=== PATIENT | female | born 1985 | race Caucasian/White ===

== ENCOUNTER 2022-12-30 20:03 | Emergency (ER) | payer OTHER, SELFPAY ==
[2022-12-30 20:06] VITALS: BP 150/90; PULSE 108; RESP 18; TEMP 36.3; O2SAT 95
[2022-12-30] MEDS: ONDANSETRON INJ 4 MG/2 ML VIAL IV PUSH (20:23)
[2022-12-30] MEDS: EPINEPHrine HCL INJ 1 MG/ML AMPUL 0.3 MG IM (20:24)
[2022-12-30 20:27] VITALS: O2SAT 98
--- NOTE | 2022-12-30 20:37 | ED.GENADULT ---
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 She took 50mg of benadryl but she still felt her throat swelling up as well as her lips. She denied dyspnea. She is also getting some cramps and watery diarrhea with it as well. Related Data Allergies Allergy/AdvReac Type Severity Reaction Status Date / Time walnut Allergy Anaphylaxis Verified 12/30/22 20:11 Review of Systems Review of Systems: All systems reviewed & are unremarkable except as noted in HPI and below Exam Const: General: healthy appearing and alert; No confusion Other: mild distress HENMT: Other: Lips were very swollen Eyes: Conjunctivae: conjunctivae normal Pupils: Equal, round and reactive pupils present EOM: EOMs intact bilaterally Neck: Neck: normal visual inspection Chest: Chest palpation & inspection: normal inspection of the chest Resp: Effort & Inspection: normal respiratory effort Auscultation: clear to auscultation bilaterally Cardio: Rate: regular rate Rhythm: regular rhythm GI: Inspection: non-distended GI Palp: Yes Soft to palpation, No Tenderness to palpation present (GI) and No Guarding due to palpation present (GI) Auscultation: normal bowel sounds Skin: General skin exam: normal color Rashes: no rashes Neuro: General: patient oriented x3 and moves all extremities Cranial nerves: Yes Nystagmus not present Extrem: General: normal to inspection Psych: Mental Status: mental status grossly normal Course Course Emergency Course: She was given a dose of sub q epi. About 15minutes after this her lip swelling was completely resolved. She continued to be asymptomatic for the duration of her hospital stay. She was given a hand written script for an epi pen as computers were down. Vital Signs Vital signs: Vital Signs Temperature 97.4 F L 12/30/22 20:06 Pulse Rate 108 H 12/30/22 20:06 Respiratory Rate 18 12/30/22 20:06 Blood Pressure 150/90 H 12/30/22 20:06 Pulse Oximetry 95 12/30/22 20:06 Oxygen Delivery Room Air 12/30/22 20:06 Temperature 97.4 F L 12/30/22 20:06 Pulse Rate 108 H 12/30/22 20:06 Respiratory Rate 18 12/30/22 20:06 Blood Pressure 150/90 H 12/30/22 20:06 Pulse Oximetry 98 12/30/22 20:27 Oxygen Delivery Room Air 12/30/22 20:27 Medical Decision Making Vital Signs Vital Signs: Vital Signs Temperature 97.4 F L 12/30/22 20:06 Pulse Rate 108 H 12/30/22 20:06 Respiratory Rate 18 12/30/22 20:06 Blood Pressure 150/90 H 12/30/22 20:06 Pulse Oximetry 95 12/30/22 20:06 Oxygen Delivery Room Air 12/30/22 20:06 Temperature 97.4 F L 12/30/22 20:06 Pulse Rate 108 H 12/30/22 20:06 Respiratory Rate 18 12/30/22 20:06 Blood Pressure 150/90 H 12/30/22 20:06 Pulse Oximetry 98 12/30/22 20:27 Oxygen Delivery Room Air 12/30/22 20:27 Discharge Plan Discharge Clinical Impression: Allergic reaction Patient Disposition: Other Condition: Improved Instructions: Anaphylaxis (ED) Follow-up/Referrals: UNKNOWN,DOCTOR [Non-Staff] -
--- NOTE | 2022-12-30 22:18 | PC.NURSE ---
Please see paper charting. Pt d/c during downtime. Iv removed. Prescription for EPI pen given via paper prescription.
== END 2022-12-30 22:21 | disposition home or self-care (01) ==
PROVIDERS: Emergency Provider Family Medicine; PCP Physician Assistant
DX: T78.1XXA Other adverse food reactions, not elsewhere classified, initial encounter (principal); R22.0 Localized swelling, mass and lump, head
CPT/HCPCS: 96372; 96374; 99284; J0171; J2405

== ENCOUNTER 2023-05-02 16:29 | Emergency (ER) | payer OTHER, SELFPAY ==
--- NOTE | ~2023-05-02 | US_ITS ---
EXAMINATION: US OB <= 14 weeks fetus DATE: 05/02/2023 18:30 INDICATION: Vaginal bleeding. Early . TECHNIQUE: Real-time transabdominal pelvic ultrasound was performed. COMPARISON: None. FINDINGS: The uterus measures 14.4 x 7.9 x 11.3 cm. There is an intrauterine gestational sac. The crown r ump length measures 6.3 cm, which correlates with an estimated gestational age of 12 weeks and 5 day( s) (+/-) 1 week(s) and 1 day(s). heart motion is identified measuring 148 beats per minute (bpm ) by M-mode Doppler. There is a small subchorionic hematoma measuring 1.1 cm. There is a 2.1 cm intra mural fibroid. The ovaries are not visualized. There is no free fluid in the pelvis. IMPRESSION: 1. Single living intrauterine gestation with estimated date of delivery of 11/09/2023. 2. Small subchorionic hematoma. 3. Uterine fibroid. Reviewed, dictated and finalized at location E. IN STATION OPERATOR IMPRESSION: 1. Single living intrauterine gestation with estimated date of delivery of 10/26. 2. Small subchorionic hematoma. 3. Uterine fibroid.
[2023-05-02 17:05] VITALS: BP 112/63; PULSE 87; RESP 16; O2SAT 99
[2023-05-02 17:39] LABS: Basophils Percent Auto 0.3 % (0.2-1.2); Eosinophils Absolute Auto 0.1 K/mm3 (0-0.3); Eosinophils Percent Auto 0.5 % (0-4.4); Hematocrit 37.7 % (37.0-47.0); Hemoglobin 12.2 g/dL (12.0-15.0); Immature Granulocyte Absolute 0.03 K/mm3 (0.00-0.031); Immature Granulocyte Percent A 0.3 % (0-0.5); Lymphocytes Absolute Auto 2.43 K/mm3 (0.9-3.2); Lymphocytes Percent Auto 24.4 % (18.3-44.2); Mean Corpuscular HGB Conc 32.4 g/dl (32-36); Mean Corpuscular Hemoglobin 28.6 pg (26-34); Mean Corpuscular Volume 88.5 fl (80-100); Mean Platelet Volume 8.9 fl (7.4-10.4); Monocytes Absolute Auto 0.6 K/mm3 (0.1-0.6); Monocytes Percent Auto 5.6 % (2.6-8.5); Neutrophils Absolute Auto 6.9 K/mm3 (1.3-6.7); Neutrophils Percent Auto 68.9 % (45.5-73.1); Platelet Count Result 356 k/mm3 (150-375); Red Blood Count 4.26 M/mm3 (4.2-5.4); Red Cell Distribution Width 13.3 % (11.5-14.5)
[2023-05-02 17:43] LABS: INR 0.9; Prothrombin Time 12.6 Seconds (11.1-14.7)
[2023-05-02 17:44] LABS: Partial Thromboplastin Time 29.2 SECONDS (22.3-36.8)
[2023-05-02 17:46] LABS: Alanine Aminotransferase 12 U/L (6-35); Albumin Level 3.6 g/dL (3.5-5.1); Alkaline Phosphatase 49 U/L (38-126); Anion Gap 7 mmol/L (8-16); Aspartate Amino Transferase 21 U/L (14-36); Bilirubin,Total 0.2 mg/dL (0.2-1.3); Blood Urea Nitrogen 12 mg/dL (7-17); Carbon Dioxide 24 mmol/L (22-30); Chloride 104 mmol/L (98-107); Estimated CRCL calculation 119 ml/min; Estimated Glomerular Filt Rate > 60; Glucose 88 mg/dL (65-110); Potassium 3.9 mmol/L (3.4-5.0); Sodium 135 mmol/L (137-145)
--- NOTE | 2023-05-02 18:54 | ED.PREGNANCY ---
HPI - General Chief complaint: Vaginal Bleeding Stated complaint: 12 weeks /vb Time Seen by Provider: 05/02/23 17:05 History of Present Illness HPI Narrative: 38-year-old female approximately 12 weeks gestation presenting with vaginal bleeding. Patient states that she felt a sudden gush earlier today and it was blood. States that she came in for evaluation and again had more bleeding and passed a few clots. Reports very mild cramping. States that the bleeding seems to have resolved now. No lightheadedness, dysuria, hematuria, nausea or vomiting. No further complaints. Her OB Gyne is Dr. Gordon. Related Data Allergies Allergy/AdvReac Type Severity Reaction Status Date / Time walnut Allergy Anaphylaxis Verified 12/30/22 20:11 Review of Systems Review of Systems: All systems reviewed & are unremarkable except as noted in HPI and below Exam Narrative: GENERAL: Well-appearing, in no acute distress, very pleasant and cooperative HEAD: Normocephalic, atraumatic. EYES: PERRLA and EOMI. ENT: Mucous membranes moist. NECK: Supple. CHEST: Clear to auscultation. No respiratory distress. HEART: Regular rate and rhythm ABDOMEN: Soft, nontender, nondistended EXTREMITIES: Normal range of motion. SKIN: Warm, dry, no rash. NEURO: Alert and oriented x3. PSYCH: Normal mood and affect. Course Vital Signs Vital signs: Vital Signs Pulse Rate 87 05/02/23 17:05 Respiratory Rate 16 05/02/23 17:05 Blood Pressure 112/63 05/02/23 17:05 Pulse Oximetry 99 05/02/23 17:05 Oxygen Delivery Room Air 05/02/23 17:05 Pulse Rate 87 05/02/23 17:05 Respiratory Rate 16 05/02/23 17:05 Blood Pressure 112/63 05/02/23 17:05 Pulse Oximetry 99 05/02/23 17:05 Oxygen Delivery Room Air 05/02/23 17:05 MDM - OB/Uterine Contractions MDM Narrative Medical decision making narrative: 38-year-old female presenting with vaginal bleeding the setting 1st trimester . Exam remarkable for the above. Blood work with elevated beta HCG as expected. Ultrasound shows subchorionic hematoma with a live intrauterine gestation. Heart rate is 148. UA is concerning for UTI. Will start her on Keflex. Advised that she follow-up closely with her OB Gyne. Appropriate return precautions given. Discharged in stable condition. Lab Data 05/02/23 17:24 05/02/23 17:24 Labs: Lab Results 05/02/23 05/02/23 Range/Units 17:24 19:49 WBC 10.0 (4.5-10.0) K/mm3 RBC 4.26 (4.2-5.4) M/mm3 Hgb 12.2 (12.0-15.0) g/dL Hct 37.7 (37.0-47.0) % MCV 88.5 (80-100) fl MCH 28.6 (26-34) pg MCHC 32.4 (32-36) g/dl RDW 13.3 (11.5-14.5) % Plt Count 356 (150-375) k/mm3 MPV 8.9 (7.4-10.4) fl Immature Gran % (Auto) 0.3 (0-0.5) % Neut % (Auto) 68.9 (45.5-73.1) % Lymph % (Auto) 24.4 (18.3-44.2) % Wise % (Auto) 5.6 (2.6-8.5) % Eos % (Auto) 0.5 (0-4.4) % Baso % (Auto) 0.3 (0.2-1.2) % Lymph # (Auto) 2.43 (0.9-3.2) K/mm3 Wise # (Auto) 0.6 (0.1-0.6) K/mm3 Eos # (Auto) 0.1 (0-0.3) K/mm3 Baso # (Auto) 0.0 (0.0-0.1) K/mm3 Abs Immat Gran (auto) 0.03 (0.00-0.031) K/mm3 Absolute Neuts (auto) 6.9 H (1.3-6.7) K/mm3 Absolute Nucleated RBC 0.0 (0.0-0.012) K/mm3 Nucleated RBC % 0.0 (0.0-0.2) % PT 12.6 (11.1-14.7) Seconds INR 0.9 APTT 29.2 (22.3-36.8) SECONDS Sodium 135 L (137-145) mmol/L Potassium 3.9 (3.4-5.0) mmol/L Chloride 104 (98-107) mmol/L Carbon Dioxide 24 (22-30) mmol/L Anion Gap 7 L (8-16) mmol/L BUN 12 (7-17) mg/dL Creatinine 0.60 L (0.7-1.0) mg/dL Estim Creat Clear Calc 119 ml/min Estimated GFR > 60 (59 - ) Glucose 88 (65-110) mg/dL Calcium 9.0 (8.4-10.2) mg/dL Total Bilirubin 0.2 (0.2-1.3) mg/dL AST 21 (14-36) U/L ALT 12 (6-35) U/L Alkaline Phosphatase 49 (38-126) U/L Total Protein 7.0 (6.3-8.2) g/dL Albumin 3.6 (3.5-5.1) g/dL
--- NOTE | 2023-05-02 19:21 | PC.NURSE ---
THIS RN ASSUMED CARE OF PATIENT. THIS RN TOOK PATIENT REPORT FROM ELANA JEFFRIES.
[2023-05-02 19:59] LABS: Bacteria Urine Rare /hpf; Non Pathogenic Casts 0-2; RBC Urine >100 /hpf (0-2); Squamous Epithelial Cell Urine None seen /hpf (Few)
[2023-05-02 20:03] LABS: Appearance Urine Turbid (Clear); Blood Urine 2+ (Negative); Color Urine Red (Yellow); Glucose Urine UA Negative (Negative); Ketones Urine Negative (Negative); Leukocyte Esterase Ur 2+ LEU/UL (Negative); Nitrate Urine Positive (Negative); Protein Urine 2+ mg/dL (Negative); Specific Grav Ur 1.008 (1.001-1.035); Urobilinogen Urine 0.2 mg/dL (<2.0)
[2023-05-02 20:08] LABS: Add Urine Microscopic? YES
[2023-05-02] MEDS: CEPHALEXIN 500 MG CAPSULE PO (21:08)
== END 2023-05-02 21:12 | disposition home or self-care (01) ==
PROVIDERS: Emergency Provider Emergency Medicine; PCP Physician Assistant
DX: O46.8X1 Other antepartum hemorrhage, first trimester (principal); O23.41 Unspecified infection of urinary tract in pregnancy, first trimester; N39.0 Urinary tract infection, site not specified; Z3A.12 12 weeks gestation of pregnancy
CPT/HCPCS: 36415; 76801; 80053; 81001; 84702; 85025; 85610; 85730; 86850; 86900; 86901; 87086; 99284; A9270

== ENCOUNTER 2023-11-05 08:43 | Outpatient (CLI) | payer OTHER, SELFPAY ==
[2023-11-05 09:50] LABS: Hematocrit 37.9 % (37.0-47.0); Hemoglobin 12.2 g/dL (12.0-15.0); Mean Corpuscular HGB Conc 32.2 g/dl (32-36); Mean Corpuscular Hemoglobin 28.9 pg (26-34); Mean Corpuscular Volume 89.8 fl (80-100); Mean Platelet Volume 9.3 fl (7.4-10.4); Platelet Count Result 299 k/mm3 (150-375); Red Blood Count 4.22 M/mm3 (4.2-5.4); Red Cell Distribution Width 14.1 % (11.5-14.5); White Blood Count 12.7 K/mm3 (4.5-10.0)
[2023-11-06 13:46] LABS: Rapid Plasma Reagin Non-Reactive (NonReactive)
== END 2023-11-05 08:44 | disposition home or self-care (01) ==
LOC: ANHLAB 08:45
PROVIDERS: PCP Physician Assistant; Visit Provider Obstetrics & Gynecology
DX: Z01.818 Encounter for other preprocedural examination (principal)
CPT/HCPCS: 36415; 85027; 86592; 86850; 86900; 86901

== ENCOUNTER 2023-11-06 09:59 | Inpatient (IN) | payer OTHER, SELFPAY ==
[2023-11-06] VITALS (53 sets, daily range): BP systolic 75–117; BP diastolic 47–81; PULSE 53–143; RESP 14–16; TEMP 36.4–37.1; O2SAT 94–100; BMI 34.1
--- NOTE | 2023-11-06 08:14 | PM.IMHP ---
H&P: HPI History of Present Illness Date/Time: 11/06/23 08:14 Chief Complaint: Here for c section Narrative: 38 y/o at 39 1/7 weeks by IVF/ET dating. Fetus thought to have absent CSP and corpus callosum, has been followed by MFM/ care at [facility]. MFM has said she may deliver at the [facility]. Baby is breech, so she is presenting for primary . Review of Systems Review of Systems: All systems reviewed & are unremarkable except as noted in HPI and below PMFSH Family History Family History Grandparent Breast cancer Grandparent Lung cancer Social History Social History Substance use: never Spiritual care concerns: No Meds Home Medications and Allergies Home Medications Medication Instructions Recorded Confirmed Type cephalexin 500 mg capsule 500 mg PO Q12H 7 days #14 caps 05/02/23 Rx Allergies Allergy/AdvReac Type Severity Reaction Status Date / Time [place] nut Allergy Anaphylaxis Verified 10/15/23 13:33 walnut Allergy Anaphylaxis Verified 12/30/22 20:11 Exam Const: Orientation/consciousness: patient oriented x3 Other: Well-developed, well-nourished female in no acute distress. Neck: Thyroid: thyroid normal Lymphatic: no lymphadenopathy noted (in neck, axilla or inguinal nodes) Resp: Effort & Inspection: normal respiratory effort Auscultation: clear to auscultation bilaterally Cardio: Rate: regular rate Rhythm: regular rhythm Heart sounds: S1 normal heart sound present and S2 normal heart sound present GI: Other: ABD: Soft, nontender, nondistended, gravid. FHR auscultated. No guarding or rebound tenderness. No hepatosplenomegaly. : General: Yes no CVA tenderness Other: Cervix closed, thick. Back/Spine/Pelvis: Back: no CVA tenderness Skin: General skin exam: normal color and no rashes or lesions noted Neuro: General: patient oriented x3 Extrem: Other: Extremities: nontender with no edema Psych: Mental Status: mental status grossly normal Affect: normal affect Assessment and Plan Assessment and plan (1) Term : Code(s): Z34.90 - Encounter for supervision of normal , unspecified, unspecified trimester Status: Acute Assessment and Plan: A: IUP at 39 weeks gestation with breech presentation. absent CSP/corpus callosusm. P: Offered primary . She understands risks of surgery to include risks of anesthesia, risks of pain, infection, bleeding, blood products, thromboembolic phenomena and damage to adjacent structures such as bowel, bladder, ureters, blood vessels and nerves. She understands all these risks and elects to proceed with surgery. (2) Breech presentation of fetus: Code(s): O32.1XX0 - Maternal care for breech presentation, not applicable or unspecified Status: Acute
[2023-11-06] MEDS: ACETAMINOPHEN 500 MG TABLET 1000 MG PO (10:19)
[2023-11-06] MEDS: LACTATED RINGERS 1,000 ML 125 ML IV CONT ×2 (10:36→11:33)
--- NOTE | 2023-11-06 10:47 | LDADM ---
This patient, Prabhakar Vázquez, was admitted to Labor/Delivery/Recovery 119 on 11/06/23 at 09:59. Plans for section, pain management and were discussed with patient. Patient/family oriented to hospital policies and general routines including ID bracelet, bed and alarms, visiting hours, pain management, procedures, bathroom and other care routines, personal items, smoking policy, room service/diet and guest tray routines, infant security routines, and visiting hours. Patient/Family are encouraged to report perceived risks to care and to ask questions if they do not understand what they are told or what they should do. See OBIX for further documentation.
--- NOTE | 2023-11-06 10:56 | WPDANESEPPF ---
Anes - Initial Pre Proc Eval Procedure: Operation Date: 11/06/23 12:00 Proposed Procedures p Section - Red Gordon MD Date/Time: 11/06/23 10:56 Surgeon: Red Gordon MD Pre Op Diagnosis: c/s Patient Data Age: 38 Gender: F Height: 1.65 m Weight: 93 kg Last Vital Signs Pulse 96 11/06/23 10:45 BP 115/79 11/06/23 10:45 O2 Del Method Room Air 11/06/23 10:43 Allergies Allergy/AdvReac Type Severity Reaction Status Date / Time [place] nut Allergy Anaphylaxis Verified 10/15/23 13:33 walnut Allergy Anaphylaxis Verified 12/30/22 20:11 Home Medications Medication Instructions Recorded Confirmed Type albuterol sulfate 90 mcg/actuation 1 puff inhalation DAILY PRN asthma 11/06/23 11/06/23 History aerosol inhaler cholecalciferol (vitamin D3) 75 3,000 unit PO DAILY 11/06/23 11/06/23 History mcg (3,000 unit) tablet prenat.vits,celi,fqh-kdmc-htpwm 1 tablet PO DAILY 11/06/23 11/06/23 History Laboratory Tests 11/06/23 10:32 HIV 1&2 Ab/P24 Ag 4thGn Pending Patient hx anesthesia problems: none Family hx anesthesia problems: none Results Review: All pre-operative results and documents have been reviewed as part of the pre-operative evaluation. [facility] Family History Family History Grandparent Breast cancer Grandparent Lung cancer Social History Social History Smoking status: Never smoker Substance use: never Do You Feel Safe in your Home?: Yes Lack of Transportation: No Lack of Food: Never True Current Housing: I Have Housing Concerned About Future Housing: No Difficulty Paying Gas/Electric Bills: No Difficulty Paying for Meds: No Currently Unemployed: No Education: Master's Degree or Higher Difficulty w/ Childcare or Family Care: No Spiritual care concerns: No Anes - Eval Final PreProcedure Day of Procedure 11/06/23 10:56 Patient weight: obese Heart: regular rate and rhythm Lungs: clear to auscultation and normal air movement Airway: Mallampati scale class II Neurological: alert and oriented Last oral intake: >/= 8 hours ASA classification: II Emergent: no Anesthetic plan: proceed Anesthesia type and monitoring: regional spinal and standard monitoring Results Review: All pre-operative results and documents have been reviewed as part of the pre-operative evaluation. Informed Consent: The patient's anesthetic plan and its attendant risks and benefits were discussed with the patient/family/POA. Questions were solicited and answers provided to the satisfaction of the patient/family/POA.
[2023-11-06 11:30] LABS: HIV 1/2 Ab P24 Ag Result Negative (Negative)
[2023-11-06] MEDS: ONDANSETRON INJ 4 MG/2 ML VIAL IV PUSH (11:53)
[2023-11-06] MEDS: FAMOTIDINE 20 MG/2 ML VIAL IV PUSH (11:54)
--- NOTE | 2023-11-06 12:17 | WPDHPUPDATE1 ---
History and Physical Update Update Date/Time: 11/06/23 12:17 History and Physical has been reviewed, including an updated exam of the patient. There are NO changes in the patient's condition. Bedside ultrasound exam by me confirms persistent breech presentation. Risks, benefits, and alternatives have been discussed and questions answered. Patient agrees to proceed with procedure.
[2023-11-06] MEDS: ceFAZolin 2 GM/D5W 50 ML 2 GM/50 ML BAG IVPB (12:25)
--- NOTE | 2023-11-06 13:26 | W.PM.OBCSD ---
OB - Delivery Note Procedure Delivery date: 11/06/23 Pre-op diagnosis: Breech Presentation Post-op Diagnosis: Same Delivery monitor: External FHT and External Uterine Procedure Performed: Primary Surgeon: Red Gordon MD Anesthesia type: Spinal Description of Procedure/Findings: Findings: Mild heart shape to uterus. Normal-appearing tubes and ovaries. Techniques: The patient was taken to the operating room where she was prepared and draped in the usual sterile fashion in dorsal supine position with a leftward tilt. She received cefazolin preoperatively. Spinal anesthesia was found to be adequate. A Pfannenstiel skin incision was made and carried through to the underlying layer of the fascia. The fascia was incised in the midline and the incision was extended laterally. The fascia was dissected free of the underlying rectus muscles. The rectus muscles were in the midline. The peritoneum was identified, tented up and entered sharply. The peritoneal incision was extended superiorly and inferiorly with good visualization of the bladder. The bladder blade was placed. The vesicouterine peritoneum was identified, tented up and entered sharply. The incision was extended laterally and the bladder flap was developed. The bladder blade was replaced. The uterus was then incised sharply in a transverse fashion along the lower uterine segment. The incision was extended laterally. The was in breech presentation with the left leg down and the right leg up, so the infant's left leg presented. The right leg was able to be grasped and flexed at the hip, so the breech could be delivered to the level of the scapulae. The arms were swept across the chest and delivered. The head was gently flexed and easily delivered. The nose and mouth were bulb suctioned. After a delay, the cord was clamped and cut. The was handed off the field. Cord blood was collected. The placenta was removed manually and was passed off the field. The uterus was exteriorized and cleared of all clots and debris. The uterine incision was reapproximated using 0 Monocryl in a running, locked fashion. A second, imbricating layer of the same suture was run. Excellent hemostasis resulted as did excellent reapproximation of the normal anatomy. The uterus was returned the abdomen. The pelvis was irrigated copiously with warmed normal saline. Hemaderm was applied to the bladder flap. Rigorous hemostasis was assured. The fascial layer was reapproximated using 0 Vicryl in a running fashion. The skin was closed with a running, subcuticular stitch of 4 0 Vicryl. Dermaflex was applied externally. Sponge, lap, needle and instrument counts were correct. The patient was taken to the recovery room in stable condition. The went to the nursery in stable condition. I was present and scrubbed the entire procedure. Specimen: Yes (cord blood) Estimated Blood Loss: 1,225 Drains: Yes (becker) Packing: No Complications: None Condition: Stable Disposition: PACU Melissa Baby Date of : 11/06/23 Time of : 12:51 Weeks of gestation at delivery: 39 gender: Male Weight (pounds): 8 Weight (ounces): 5 presentation: breech Placenta delivery description: Manual Removal and Normal Configuration Cord Vessel Description: 3 Vessels and Delayed Cord Clamping score one minute: 8 score five minutes: 9
--- NOTE | 2023-11-06 13:31 | PM.OBDSVD ---
DS: Admitting Diagnosis Discharge Date 11/08/23 Admitting Diagnosis IUP at 39 1/7 weeks Breech presentation DS: Discharge Diagnosis Discharge Diagnosis (1) delivery delivered: Code(s): O82 - Encounter for delivery without indication Status: Acute OB - DS: Summary OB Procedures : NST and Ultrasound OB Procedures Intrapartum: OB Procedures: : None Peripartum Data Procedures: Procedures Operation Date: 11/06/23 12:00 <No data on this case meets the specified criteria> Time Spent with Patient Time attestation: Total time spent providing and/or coordinating discharge services: DS: Data Data Completed and Pending Labs on day of discharge: Labs from last 24 hours 11/06/23 10:32 HIV 1&2 Ab/P24 Ag 4thGn Negative Discharge Plan Discharge Attending physician on discharge: Red Gordon Discharging Clinician: Red Gordon Anticipated Discharge Date/Time: 11/08/23 05:47 Patient Disposition: Home, Self-Care Activity: may shower, may drive after 2 weeks and pelvic rest Diet: regular Wound Care Instructions: incision open to air Discharge Instructions: Education: Mom and Baby Guide Given to: Mother Follow-Up: Call your delivering provider's office for an appointment to be seen in: 4 Weeks Mom and baby should come to the [facility] for the follow-up appointment. Appointment Date/Time: November 10, 2023 at 11:00 am What to expect at your follow-up visit: Blood Pressure Check Call [phone] if you are unable to keep your appointment time. BREAST CARE: * Wear a snug supportive bra. * For engorgement discomfort: Breast Feeding: * Apply warm moist washcloths * Express milk as needed to relieve engorgement * Wear loose clothing Bottle Feeding: * May apply ice packs * For sore nipples: * Identify correct latch-on * Apply warm moist washcloths before and after nursing * Air dry nipples after nursing * May apply Lansinoh cream to nipples ABDOMINAL INCISION: (if applicable) * Allow incision to air dry * Do NOT use lotions for powders on your incision * When showering, allow soap and water to run over the incision, but do not wash incision EPISIOTOMY/PERINEAL CARE: * Until bleeding stops, use your zaria bottle after urinating * Change your pad frequently throughout the day * You may take sitz baths several times a day (fill your bathtub with warm water and soak for 20 minutes.) Do NOT bathe in the water * No tub baths until seen by your physician - You may shower ACTIVITY: * Rest as much as possible. * Do not exercise or lift anything heavier than your baby (such as laundry or other children.) * Avoid stairs or driving as much as possible. * Do not put anything into the vagina. No douching, tampons, or sexual activity until seen by physician. NOTIFY PHYSICIAN IF YOU HAVE ANY QUESTIONS OR IF ANY OF THE FOLLOWING SYMPTOMS OCCUR: * If your episiotomy or incision becomes red, swollen, or more painful than what you have experienced in the hospital. * If your vaginal bleeding becomes foul smelling. * If your vaginal bleeding becomes more heavy than a period or if your bleeding changes from pink to bright red. However, you may pass an occasional wal[place]-sized clot once or twice for the first week . * If you experience a sharp, shooting pain in you calves. * If you discover a hard, reddened area on your breast or if you experience flu-like symptoms. DIET: * Eat regular, well-balanced meals. * Drink plenty of fluids daily. If , drink to thirst.Call or return if temperature above 100.4? F, increased abdominal pain, increased vaginal bleeding or any new problems. Stand Alone Forms: General Discharge Information Follow-up/Referrals: Red Gordon MD [Physician] - 4 Weeks
--- NOTE | 2023-11-06 14:45 | PC.NURSE ---
Nipple shield provided to mother due to [inverted nipples]. Reviewed good handwashing, cleaning the nipple shield and the appropriate way to apply and use as a tool. Discussed with mom the nipple shield precautions, possible complications associated with the risks and benefits. Reviewed practicing with a nipple shield, then without and how to protect the milk supply and production. Mother has a latch assist applied by the nursery nurse and her nipple did come out and stay everted while we attempted to latch. was not able to latch without the shield. With the shield his suck and tongue were not coordinated, but he did latch and suckle multiple times. Mom was receptive of education and was holding infant skin to skin after feeding. Mom voiced understanding of the importance of nipple stimulation and initiating a pumping schedule if continues to nurse with the shield. Reported to the Primary RN.
--- NOTE | 2023-11-06 15:45 | OBPPTRN ---
Patient transferred to post room #290 via stretcher. Support person present. Oriented to unit, room, information board, rooming in, admission packet and security measures. Patient verbalizes understanding.
[2023-11-06] MEDS: KETOROLAC 15 MG/ML VIAL (*BKC) IV PUSH ×2 (16:13→22:20)
[2023-11-06] MEDS: ACETAMINOPHEN 325 MG TABLET 650 MG PO ×2 (16:13→22:19)
[2023-11-06] MEDS: LIDOCAINE 5% PATCH 1 PATCH TRANSDERM (16:14)
[2023-11-06] MEDS: OXYTOCIN 30 UNITS/NS 500 ML 30 UNITS/500 ML BAG 125 UNITS IV CONT (16:18)
[2023-11-06] MEDS: SIMETHICONE 80 MG TAB.CHEW PO (17:53)
[2023-11-06] MEDS: POLYSACCHARIDE IRON COMPLEX 150 MG CAPSULE PO (17:53)
[2023-11-06] MEDS: DOCUSATE SODIUM 100 MG CAPSULE PO (17:53)
[2023-11-07 00:30] VITALS: BP 93/58; PULSE 57; RESP 14; TEMP 36.7; O2SAT 97
[2023-11-07] MEDS: ACETAMINOPHEN 325 MG TABLET 650 MG PO ×3 (04:35→17:26)
[2023-11-07] MEDS: KETOROLAC 15 MG/ML VIAL (*BKC) IV PUSH ×2 (04:36→10:54)
[2023-11-07 05:00] VITALS: BP 92/54; PULSE 61; RESP 16; TEMP 36.4; O2SAT 98
[2023-11-07 06:02] LABS: Basophils Percent Auto 0.2 % (0.2-1.2); Eosinophils Percent Auto 0.2 % (0-4.4); Hematocrit 30.2 % (37.0-47.0); Hemoglobin 9.9 g/dL (12.0-15.0); Immature Granulocyte Absolute 0.08 K/mm3 (0.00-0.031); Immature Granulocyte Percent A 0.6 % (0-0.5); Lymphocytes Absolute Auto 1.86 K/mm3 (0.9-3.2); Lymphocytes Percent Auto 14.8 % (18.3-44.2); Mean Corpuscular HGB Conc 32.8 g/dl (32-36); Mean Corpuscular Hemoglobin 29.2 pg (26-34); Mean Corpuscular Volume 89.1 fl (80-100); Mean Platelet Volume 9.3 fl (7.4-10.4); Monocytes Absolute Auto 0.6 K/mm3 (0.1-0.6); Monocytes Percent Auto 4.6 % (2.6-8.5); Neutrophils Percent Auto 79.6 % (45.5-73.1); Platelet Count Result 241 k/mm3 (150-375); Red Blood Count 3.39 M/mm3 (4.2-5.4); Red Cell Distribution Width 13.9 % (11.5-14.5); White Blood Count 12.6 K/mm3 (4.5-10.0)
[2023-11-07 07:55] VITALS: BP 93/59; PULSE 66; RESP 16; TEMP 37.1; O2SAT 98
--- NOTE | 2023-11-07 07:59 | WPDANLDPN2 ---
Anes-Prog Note L&D Date/Time: 11/07/23 07:59 Comfortable throughout: section Neuraxial method: spinal Epidural/Spinal procedure site: clean & non-tender Neuro status: Neuro function grossly intact. Cardiovascular status: normal Respiratory status: normal Airway patency: baseline Mental status: baseline Post-Op hydration status: normal Vital Signs: Last Vital Signs Temp 36.4 C 11/07/23 05:00 Pulse 61 11/07/23 05:00 Resp 16 11/07/23 05:00 BP 92/54 L 11/07/23 05:00 Pulse Ox 98 11/07/23 05:00 O2 Del Method Room Air 11/07/23 05:00 Pain score (VAS): 4/10 I/O: Intake & Output 11/06/23 11/06/23 11/07/23 15:59 23:59 07:59 Intake Total 1050 960 550 Output Total 7709 113 0635 Balance -275 210 -850 Post-procedural complaints: pruritis mild, no treatment Patient feedback: Patient satisfied with anesthetic care.
--- NOTE | 2023-11-07 07:59 | WPDANLDNPN2 ---
Anes-Prog Note L&D-Neuraxial Date/Time: 11/07/23 07:59 Neuraxial medications: intrathecal PF morphine Opiod-related complaints: pruritis mild, no treatment Patient feedback: Patient satisfied with post-operative pain management.
--- NOTE | 2023-11-07 08:30 | PM.OBPNVD ---
OB - PN: Subj Subjective Date/time seen: 11/07/23 08:30 Patient comments: no complaints and pain well controlled baby status: doing well and nursing well OB - PN: Obj Data Labs 11/07/23 04:39 Labs: Laboratory Results - last 24 hr 11/06/23 11/07/23 10:32 04:39 WBC 12.6 H RBC 3.39 L Hgb 9.9 L Hct 30.2 L MCV 89.1 MCH 29.2 MCHC 32.8 RDW 13.9 Plt Count 241 MPV 9.3 Immature Gran % (Auto) 0.6 H Neut % (Auto) 79.6 H Lymph % (Auto) 14.8 L [place] % (Auto) 4.6 Eos % (Auto) 0.2 Baso % (Auto) 0.2 Lymph # (Auto) 1.86 [place] # (Auto) 0.6 Eos # (Auto) 0.0 Baso # (Auto) 0.0 Abs Immat Gran (auto) 0.08 H Absolute Neuts (auto) 10.0 H Absolute Nucleated RBC 0.000 Nucleated RBC % 0.0 HIV 1&2 Ab/P24 Ag 4thGn Negative OB - PN A/P Plan day: 1 Plan: routine care Time Spent With Patient Time: Total time spent is greater than 50% in coordination of care (as documented) at patient's floor/unit and/or counseling patient: Time with patient: less than 15 minutes Exam Const: General: cooperative, healthy appearing and comfortable Nutritional Appearance: average body habitus Orientation/consciousness: oriented to person, oriented to place and oriented to time Resp: Effort & Inspection: normal respiratory effort GI: Inspection: normal to inspection and incision (cdi)
[2023-11-07] MEDS: POLYSACCHARIDE IRON COMPLEX 150 MG CAPSULE PO ×2 (09:36→17:25)
[2023-11-07] MEDS: SIMETHICONE 80 MG TAB.CHEW PO ×3 (09:36→17:25)
[2023-11-07] MEDS: DOCUSATE SODIUM 100 MG CAPSULE PO ×2 (09:36→17:25)
[2023-11-07] MEDS: MULTIVIT/MIN/PREN/FOL AC/IRON TABLET 1 TAB PO (09:36)
[2023-11-07] MEDS: LANOLIN (LANSINOH) 7.5 GM CREAM 1 APPLIC TOPICAL (09:36)
--- NOTE | 2023-11-07 10:45 | PC.NURSE ---
Consulted with patient to assess needs related to . Discussed with mother her successes, concerns and any questions she has. We reviewed working with the , supporting breast, protecting her nipples with an optimal deep latch, good positioning, and good hand washing. Mother has infant latched in cross cradle on the right breast with the nipple shield. She states he is sleepy at this feeding but had a very good feeding last time and was awake and sucking consistently. Encouraged understanding the benefits of skin to skin, responding to feeding cues, frequencies of feeding 8-12 times in 24 hours (approximately 2-3 hours), and duration of feedings. Education given to the mother of how to visualize the suckling. The infant was [able] to maintain latch without discomfort to mother. Nipple care reviewed with optimal latch, good positioning and using clean hands when touching her breast. Breast pump provided due to consistent use of the nipple shield. Instructions given on cleaning, care, usage, that there should be no pain, pumping schedule for milk production, collection, and storage of human milk. Patient was assessed for correct placement, flange size (24mm), nipple stretching/stimulation for adequate milk production every 3 hours (8 times in 24 hours) 1-2 times at night. Reviewed use and storage of breastmilk. Mother voiced understanding of the education shared, to call for assistance if the does not latch or if there is discomfort with . Reported to the Primary RN.
[2023-11-07 11:54] VITALS: BP 92/57; PULSE 62; RESP 16; TEMP 37.4; O2SAT 97
--- NOTE | 2023-11-07 14:45 | PC.NURSE ---
Checked in with mother. First time pumping she got a few drops that she finger fed to baby. She is currently pumping, it is not painful. She had 3ml of pumped milk that RN will syringe feed to baby at the next feeding. Mother knows milk can stay at the bedside for up to 4 hours at room temperature. Mother verbalized understanding of information shared.
[2023-11-07] MEDS: IBUPROFEN 600 MG TABLET PO (17:26)
[2023-11-07] MEDS: LIDOCAINE 5% PATCH 1 PATCH TRANSDERM (17:26)
[2023-11-07 19:05] VITALS: BP 103/61; PULSE 74; RESP 12; TEMP 36.6; O2SAT 100
--- NOTE | 2023-11-08 01:55 | P.PNOB_ITS ---
OB - PN: Subj Subjective Date/time seen: 11/08/23 01:55 Narrative: Pain OK. Tolerating diet. Would like to go home. OB - PN: Obj Data Labs 11/07/23 04:39 Labs: Laboratory Results - last 24 hr 11/07/23 04:39 WBC 12.6 H RBC 3.39 L Hgb 9.9 L Hct 30.2 L MCV 89.1 MCH 29.2 MCHC 32.8 RDW 13.9 Plt Count 241 MPV 9.3 Immature Gran % (Auto) 0.6 H Neut % (Auto) 79.6 H Lymph % (Auto) 14.8 L [place] % (Auto) 4.6 Eos % (Auto) 0.2 Baso % (Auto) 0.2 Lymph # (Auto) 1.86 [place] # (Auto) 0.6 Eos # (Auto) 0.0 Baso # (Auto) 0.0 Abs Immat Gran (auto) 0.08 H Absolute Neuts (auto) 10.0 H Absolute Nucleated RBC 0.000 Nucleated RBC % 0.0 OB - PN A/P Plan day: 2 Comments: A: POD#2, doing well. P: Home to f/u 4 weeks. Exam Narrative: AVSS ABD soft, nontender, fundus firm. Incision c/d/i. EXT nontender
[2023-11-08] MEDS: ACETAMINOPHEN 325 MG TABLET 650 MG PO (05:05)
[2023-11-08] MEDS: IBUPROFEN 600 MG TABLET PO (05:06)
[2023-11-10 11:01] VITALS: BP 116/73; PULSE 80; RESP 18; TEMP 36.8; O2SAT 100
== END 2023-11-08 06:50 | disposition home or self-care (01) | DRG 788 ==
LOC: ANHLDR 13:32 → ANHOB2 15:47
PROVIDERS: Admitting Provider Obstetrics & Gynecology; PCP Physician Assistant; Visit Provider Obstetrics & Gynecology
PROC: 10D00Z1 Extraction of Products of Conception, Low, Open Approach (ICD-10-PCS; CPT 59514; principal; 2023-11-06 12:00)
DX: O32.1XX0 Maternal care for breech presentation, not applicable or unspecified (principal); Z37.0 Single live birth; Z3A.39 39 weeks gestation of pregnancy
CPT/HCPCS: 36415; 85025; 85027; 86592; 86703; 86850; 86900; 86901; A9270; G0432; J0690; J1885; J2274; J2405; J2590; J7120

== ENCOUNTER 2024-12-29 15:34 | Outpatient (CLI) | payer OTHER, SELFPAY ==
[2024-12-29 16:34] LABS: Hematocrit 36.3 % (37.0-47.0); Hemoglobin 11.7 g/dL (12.0-15.0); Mean Corpuscular HGB Conc 32.2 g/dl (32-36); Mean Corpuscular Hemoglobin 28.1 pg (26-34); Mean Corpuscular Volume 87.3 fl (80-100); Platelet Count Result 243 k/mm3 (150-375); Red Blood Count 4.16 M/mm3 (4.2-5.4); White Blood Count 8.8 K/mm3 (4.5-10.0)
--- OUTSIDE RECORDS SUMMARY | 2024-12-29 16:57 | XMS_ITS | Clinical Summary ---
Author Organization [facility] Address [address] [place] [address] Care Team Providers Care Link Assembler Name Role Phone Unavailable Primary Care Provider Unavailabl e Source Comments [facility],non-owned Affiliates and Associated Physician Practices is amultiple site organization consisting of ambulatory clinics and hospital sitesin [place], [place], [place] and [place]. This disclosure is being madepursuant to the Care Everywhere program and may not contain all information available regarding this patient. Last updated 18.[facility] Allergies Active Allergy Reactions Criticality Noted Date Comments Tree Nuts Unknown 07/18/2023 Medications * Be aware that medications may not be up to date on this document. Alwaysverify current medications with the patient. Progesterone 100 MG capsule Take 1 (one) capsule by mouth at bedtime Active vitamin D3 (Cholecalcifero l) 25 MCG (1000 UNITS) tablet Take 1 (one) tablet by mouth once daily Active Vit-Fe Fumarate-FA ( vitamin) 28-0.8 MG tablet Take 1 (one) tablet by mouth once daily Active [place]-3 Fatty Acids (fish oil) 500 MG capsule Take by mouth 2 times daily Active Active Problems Problem Noted Date Diagnosed Date POLYTECHNIC REGISTRAR malformation in , single gest ation 09/04/2023 Depression screen 07/31/2023 Overview (09/04/2023): 07/31/2023 Prabhakar Vázquez was screened for depression using the [place] Depression Scale (EPDS) at her [facility] initial evaluation on 07/31/2023. Her initial score at baseline was 3. Based off of her score of 3, Prabhakar does not warrant follow up. 09/04/23 EPDS F/U=2 Patient denies mental health history. Estimated Date of Delivery Comme nts Yes 01/06/2025 Based on last me nstrual period of 04/01/2024 Resolved Problems Problem Noted Date Diagnosed Date Resolved Date RETIREMENT- abnormality in 07/21/2023 11/13/2023 Overview (11/04/2023): Images from the original note were not included. RETIREMENT PATIENT--PLEASE CALL [phone] (ex 2) IF TRIAGED OR ADMITTED Care Provider: Dr. Gordon [facility] consultants involved: Miki- Nurse Navigator; Nato- Genetic Counselor (5.9); Dr. 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 Posterior horns of the lateral ventricles are mildly prominent; otherwise normal ventricular size. No other gross supratentorial abnormality. Planned surveillance: Initial RETIREMENT appointment 07/30 for US Return on 09/03 for MRI, Genetic Counseling and Neurology consult Delivery location: [place] Delivery mode: Per OB indications Desired Delivery GA: follow up: Per Dr. Garcia: Can obtain MRI Brain after (within 1-2 months of age) in order to avoid sedation and to assess for any other malformations. Can also do head USG at bedside after to assess for any ventriculomegaly and ACC quickly but MRI can offer more detailed information. Neurology evaluation - to be scheduled with me either in Nursery f/u clinic or General Neurology clinic at around 4 months of age for developmental and tone assessment. Stand Up Comedian: Autopsy indicated: Genetics note: genetic diagnostic testing was not performed. Please request Genetics consult postnatally if clinically indicated by calling the Genetics office at [phone] prior to ordering genetic studies. Patient desires microarray to be performed on cord blood at the time of delivery. Please draw at least 3cc cord blood in green top sodium heparin tube. NICU staff to place order in baby's chart. Sample to be sent to reference lab for sendout. C.O.D. Biller Concerns: 07/31/2023- There are no social service concerns identified at this time Care plan based on evaluation and is subject to change based on assessment. See Images or Cardiac under Chart Review for US/ ECHO/ MRI reports. Encounters Date Type Department Care Team Description 11/15/2024 1:00 PM CDT - 11/15/2024 11:59 PM CDT Hospital Encounter [facility] [address] [place], [place] [id number] Natacha Guillen MD Discharge Disposition: Home or Self Care from Last 3 Months Social History Tobacco Use Types Packs/Day Years Used Date Smoking Tobacco: Never Assessed PHQ-2 Answer Date Recorded Patient Health Questionnaire-2 Score 0 07/18/2023 [place] Depression Scale Answer Date Recorded [place] Depression Scale Total 2 09/04/2023 The thought of harming myself has occurred to me . Never 09/04/2023 Education Answer Date Recorded What is the highest level of school you have completed or the highest degree you have received? Master's degree (e.g., MA, MS, Jayna, MEd, UNIVERSITY PROFESSOR, [employer]) 07/18/2023 Estimated Date of Delivery Comme nts Yes 01/06/2025 Based on last me nstrual period of 04/01/2024 Sex and Gender Information Value Date Recorded Sex Assigned at Not on file Legal Sex Female 2:10 PM CDT Gender Identity Not on file Sexual Orientation Not on file Occupation Industry Job Start Date Job End Date Teacher Not on file Not on file Not on file Last Filed Vital Signs Vital Sign Reading Time Taken Comments Blood Pressure 106/68 09/04/2023 10:33 AM CDT Pulse 77 09/04/2023 10:33 AM CDT Temperature - - Respiratory Rate - - Oxygen Saturation - - Inhaled Oxygen Concentration - - Weight - - Height - - Body Mass Index - - Plan of Treatment Health Maintenance Due Date Last Done Comments HIV SCREENING 2002 HEPATITIS C SCREENING 01/25/2005 DTAP/TDAP/TD VACCINES (1 - Tdap) 2006 HEPATITIS B VACCINE (1 of 3 - 19+ 3-dose series) 2006 PAP SMEAR 01/31/2008 HPV VACCINE (1 - 3-dose SCDM series) 2014 COVID-19 VACCINE (2023-2 5 season) 2023 DEPRESSION SCREENING 04/28/2024 07/31/2023 OB-ONE HOUR GLUCOSE 09/30/2024 OB-TDAP CURRENT 10/07/2024 OB-RHOGAM INJECTION 10/14/2024 OB-GROUP B STREP SCREEN 12/02/2024 INFLUENZA VACCINE (#1) 2024 ZOSTER VACCINE (1 of 2) 2037 HIB VACCINE Aged Out No longer eligi ble based on patient's age to complete this topic MENINGOCOCCAL (Group B) VACC INE SHARED DECISION-MAKING Aged Out No longer eligibl e based on patient's age to complete this topic MENINGOCOCCAL GROUPS A/C/Y/W VACCINE Aged Out No longer eligible b ased on patient's age to complete this topic PNEUMOCOCCAL VACCINE Aged Out No long er eligible based on patient's age to complete this topic Respiratory Syncytial Virus (RSV) Vaccine Pt: or over 60 yrs (No Doses Required) Completed Procedures Procedure Name Priority Date/Time Associated Diagnosis Comments SONOGRAM - COMPLETE Routine 11/15/2024 1:08 PM CDT Encounter for ultrasound to assess growth (HCC) AMA (advanced maternal age) multigravida 35+, second trimester (HCC) Obesity affecting in second trimester, unspecified obesity type (HCC) 32 weeks gestation of (HCC) from Last 3 Months Results * Sonogram - Complete (11/15/2024 1:08 PM CDT) Linked Results Indication ======== Advanced maternal age (AMA), multigravida Maternal obesity complicating , class 1 (BMI 30.0 - 34.9) Family history of other neurological diseases 2023 baby agenesis of Corpus Collosum & absent CSP History ====== OB History 4. Para 1 [id number] 1. miscarriage 2017 2. miscarriage 2022 3. live 2023. Gest. age 39 w + 0 d. Weight 3,770 g. Sex of child: male. Details: delivery; Breech Presentation; Absent Corpus Callosum Lab Tests Test Date Result NIPT Low risk Maternal Assessment Physical Exam Height 163 cm, 5 ft 4 in. Weight 98 kg, 217 lb. Initial weight 88 kg, 195 lb. BMI 37.25 kg/m . Initial BMI 33.47 kg/m . Weight gain 10 kg, 22 lb Method ====== Transabdominal ultrasound. View: Sufficient ========= Park . Number of fetuses: 1 Dating ====== Date Details Gest. age JACK LMP 04/01/2024 32 w + 4 d 01/06/2025 Stated JACK 32 w + 4 d 01/06/2025 U/S 11/15/2024 based upon AC, BPD, Femur, HC 33 w + 2 d 01/01/2025 Assigned dating based on the LMP, selected on 08/13/2024 32 w + 4 d 01/06/2025 General Evaluation Cardiac activity present. FHR 123 bpm. Presentation: cephalic Placenta: Placental site: posterior Amniotic fluid: Amount of AF: normal. MVP 7.3 cm. EVA 23.6 cm. Q1 6.2 cm, Q2 5.9 cm, Q3 4.2 cm, Q4 7.3 cm Biometry BPD 83.4 mm 33w 4d 72% Hadlock HC 308.7 mm 34w 3d 63% Hadlock AC 293.0 mm 33w 2d 71% Hadlock Femur 61.5 mm 31w 6d 21% Hadlock Humerus 54.4 mm 31w 5d 32% Jay HC / AC 1.05 Weight Calculation: EFW 2,104 g 55% Hadlock EFW (lb,oz) 4 lb 10 oz EFW by Hadlock ([id number]) appropriate Growth Overview Exam date GA BPD (mm) HC (mm) AC (mm) FL (mm) HL (mm) EFW (g) 08/13/2024 19w 1d 41.8 30% 168.8 61% 148.5 77% 29.3 38% 28.4 52% 300 69% 09/10/2024 23w 1d 55.5 37% 211.2 37% 179.1 30% 39.5 25% 536 27% 11/15/2024 32w 4d 83.4 72% 308.7 63% 293 71% 61.5 21% 54.4 32% 2104 55% Anatomy The following structures appear normal: Abdomen Stomach. Kidneys. Bladder. Impression ========= Single, live, intrauterine at 32w 4d The size is appropriate. The amniotic fluid volume is normal. No major malformations were seen within the limitations of ultrasound Comment ======== ultrasound alone cannot detect all structural, genetic, or functional , placental, or maternal abnormalities Follow-up ======== Growth US in 4 weeks may be considered, or as clinically indicated. Coding ====== Diagnoses Z82.0: Family history of epilepsy and other diseases of the nervous system O99.213, E66.811: Obesity complicating , class 1 (BMI 30.0 - 34.9) O09.523: Supervision of elderly multigravida Procedures 34034: US Preg Uterus Follow Up [facility] [employer] PACS Anatomical Region Laterality Modality Other 11/15/2024 1:08 PM CDT Red Gordon MD [facility] ORDERABLES Edited Result - Final from Last [address] [facility]
--- OUTSIDE RECORDS SUMMARY | 2024-12-29 16:57 | XMS_ITS | Encounter Summary ---
Author Organization [facility] Address [address] [place] [address] Care Team Providers Care Digital Tech Name Role Phone Unavailable Primary Care Provider Unavailabl e Reason for Visit * Reason Onset Date Comments Reschedule Appointment 07/21/2023 Encounter Details Date Type Department Care Team (Late st Contact Info) Description 07/21/2023 Telephone [facility] - CREMATORIUM OPERATOR [address] [place] [address] Otf Marie MD [address] [place] [address] Reschedule Appointment Social History Tobacco Use Types Packs/Day Years Used Date Smoking Tobacco: Never Assessed PHQ-2 Answer Date Recorded Patient Health Questionnaire-2 Score 0 07/18/2023 Education Answer Date Recorded What is the highest level of school you have completed or the highest degree you have received? Master's degree (e.g., MA, MS, Jayna, MEd, BED AND BREAKFAST COOK, [employer]) 07/18/2023 Comments Yes Sex and Gender Information Value Date Recorded Sex Assigned at Not on file Legal Sex Female 2:10 PM CDT Gender Identity Not on file Sexual Orientation Not on file Occupation Industry Job Start Date Job End Date Teacher Not on file Not on file Not on file documented as of this encounter Miscellaneous Notes * Telephone Encounter - Maria Del Carmen Cochran - 07/21/2023 10:04 AM CDT Current Provider: CASSANDRA ( New Pt ) Reason for Call: Pt was notifies her appt was cancelled. Cancel reason. Provider (Pt to be seen in [facility] per CB and JOSE) Can she rsc? Patient Call Back Number: [phone] documented in this encounter Plan of Treatment Not on file documented as of this encounter Visit Diagnoses Not on filedocumented in this encounter
--- OUTSIDE RECORDS SUMMARY | 2024-12-29 16:57 | XMS_ITS | Clinical Summary ---
Author Organization [facility] [address] Address [address] [place] [address] Care Team Providers Care Literary Writer Name Role Phone Carissa Lancaster Primary Care Pr ovider Allergies Active Allergy Reactions Criticality Noted Date Comments Tree Nuts Unknown 07/18/2023 Walnuts and Mulberry Nuts. Medications FeroSuL 325 mg (65 mg iron) tablet Take 1 tablet (325 mg total) by mouth daily 11/08/2023 Active Active Problems Estimated Date of Delivery Comme nts Yes 01/06/2025 No known active problems Surgical History Surgery Date Site/Laterality Comments SECTION 11/06/2023 Social History Tobacco Use Types Packs/Day Years Used Date Smoking Tobacco: Never Assessed Estimated Date of Delivery Comme nts Yes 01/06/2025 Sex and Gender Information Value Date Recorded Sex Assigned at Not on file Legal Sex Female 4:08 PM CDT Gender Identity Female 12/08/2023 12:40 PM CDT Sexual Orientation Not on file Obstetrics History Para Term AB IAB SAB Ectopic Multiple Livin g Live Births 1 Date Outcome GA Total Labor Labor/2nd/3rd Weight Sex Type Anes PTL Zoey A1 A5 Name Clin Current Last Filed Vital Signs Vital Sign Reading Time Taken Comments Blood Pressure 124/66 07/25/2024 8:56 AM CDT Pulse 86 07/25/2024 8:56 AM CDT Temperature 36.7 C (98 F) 07/25/2024 8:56 AM CDT Respiratory Rate 18 07/25/2024 8:56 AM CDT Oxygen Saturation 98% 07/25/2024 8:56 AM CDT Inhaled Oxygen Concentration - - Weight 92.1 kg (203 lb) 07/25/2024 8:56 AM CDT Height 163.8 cm (5' 4.5) 07/25/2024 8:56 AM CDT Body Mass Index 34.31 07/25/2024 8:56 AM CDT Plan of Treatment Health Maintenance Due Date Last Done Comments Cervical Cancer Screening 1987 Depression Screening 1987 Hepatitis C Screening 1987 Varicella Vaccines (1 of 2 - 13+ 2-dose series) 01/31/2000 Hepatitis B Screening 2005 Regular Well Visit/Exam 18-64 2005 Pneumococcal vaccine <65 (1 of 2 - PCV) 2006 HPV Vaccines (1 - 3-dose SCDM series) 2014 Influenza Vaccine (#1) 2024 03/25/2018, 2011 DTaP/Tdap/Td Vaccine (3 - Td or Tdap) 06/16/2027, 02/18/2012 Insurance [facility] HMO/PPO Address: [address] [facility] [address] [place] [address] [place] [address] [facility] HMO/PPO Address: [place] [address] Care Teams Literary Writer Relationship Specialty Start Date End Date Carissa Lancaster PA PCP - General Physician Hot Water Heater Installer 03/03/21
[2024-12-29 16:58] LABS: Syphilis IgG/IgM Antibody Non-Reactive (Nonreactive)
== END 2024-12-29 15:35 | disposition home or self-care (01) ==
LOC: ANHLAB 15:36
PROVIDERS: PCP Physician Assistant; Visit Provider Obstetrics & Gynecology
DX: Z01.818 Encounter for other preprocedural examination (principal)
CPT/HCPCS: 36415; 85027; 86593; 86850; 86900; 86901

== ENCOUNTER 2024-12-30 05:24 | Inpatient (IN) | payer OTHER, SELFPAY ==
[2024-12-30] VITALS (113 sets, daily range): BP systolic 79–126; BP diastolic 45–84; PULSE 48–144; RESP 12–18; TEMP 36.2–37.1; O2SAT 97–100; BMI 40.6; BMI 37.8
--- OUTSIDE RECORDS SUMMARY | 2024-12-30 05:30 | XMS_ITS | Clinical Summary ---
Author Organization [facility] [employer] Address [address] [place] [address] Care Team Providers Care Replanting Machine Operator Name Role Phone Unavailable Primary Care Provider Unavailabl e Source Comments [facility],non-owned Affiliates and Associated Physician Practices is amultiple site organization consisting of ambulatory clinics and hospital sitesin [place], [place], [place] and [place]. This disclosure is being madepursuant to the Care Everywhere program and may not contain all information available regarding this patient. Last updated 18.[facility] [employer] Allergies Active Allergy Reactions Criticality Noted Date [...] (one) tablet by mouth once daily Active [place]-3 Fatty Acids (fish oil) 500 MG capsule Take by mouth 2 times daily Active Active Problems Problem Noted Date Diagnosed Date LEARNING DISABLED TEACHER malformation in , single gest ation 09/04/2023 Depression screen 07/31/2023 Overview (09/04/2023): 07/31/2023 Prabhakar Vázquez was screened for depression using the [place] Depression Scale (EPDS) at her [facility] initial evaluation on 07/31/2023. Her initial score at baseline was 3. Based off of her score of 3, Prabhakar does not warrant follow up. 09/04/23 EPDS F/U=2 Patient denies mental health history. Estimated Date of Delivery Comme nts Yes 01/06/2025 Based on last me nstrual period of 04/01/2024 Resolved Problems Problem Noted Date Diagnosed Date Resolved Date FDC- abnormality in 07/21/2023 11/13/2023 Overview (11/04/2023): Images from the original note were not included. FDC PATIENT--PLEASE CALL [phone] (ex 2) IF TRIAGED OR ADMITTED Care Provider: Dr. Gordon [facility] consultants involved: Miki- Nurse Navigator; Nato- Genetic Counselor (5.9); Dr. 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 Posterior horns of the lateral ventricles are mildly prominent; otherwise normal ventricular size. No other gross supratentorial abnormality. Planned surveillance: Initial FDC appointment 07/30 for US Return on 09/03 for MRI, Genetic Counseling and Neurology consult Delivery location: [place] Delivery mode: Per OB indications Desired Delivery [...] of age for developmental and tone assessment. Lead Engineer: Autopsy indicated: Genetics note: genetic diagnostic testing was not performed. Please request Genetics consult postnatally if clinically indicated by calling the Genetics office at [phone] prior to ordering genetic studies. Patient desires microarray to be performed on cord blood at the time of delivery. Please draw at least 3cc cord blood in green top sodium heparin tube. NICU staff to place order in baby's chart. Sample to be sent to reference lab for sendout. Tester Regulator Concerns: 07/31/2023- There are no social service concerns identified at this time Care plan based on evaluation and is subject to change based on assessment. See Images or Cardiac under Chart Review for US/ ECHO/ MRI reports. Encounters Date Type Department Care Team Description 11/15/2024 1:00 PM CDT - 11/15/2024 11:59 PM CDT Hospital Encounter [facility] Maternal & Care [address] [place], [place] [id number] Natacha Guillen MD Discharge Disposition: Home or Self Care from Last 3 Months Social History Tobacco Use Types Packs/Day Years Used Date Smoking Tobacco: Never Assessed PHQ-2 Answer Date Recorded Patient Health Questionnaire-2 Score 0 07/18/2023 Phillips Depression Scale Answer Date Recorded Phillips Depression Scale Total 2 09/04/2023 The thought of harming myself has occurred to me . Never 09/04/2023 Education Answer Date Recorded What is the highest level of school you have completed or the highest degree you have received? Master's degree (e.g., MA, MS, Jayna, MEd, RAIL CAR MAINTENANCE MECHANIC, [employer]) 07/18/2023 Estimated Date of Delivery Comme [...] History ====== OB History 4. Para 1 [id number] 1. miscarriage 2017 2. miscarriage 2022 3. [...] 4 lb 10 oz EFW by Hadlock ([id number]) appropriate Growth Overview Exam date [place] BPD [...] 34.9) O09.523: Supervision of elderly multigravida Procedures 19648: US Preg Uterus Follow Up [facility] [employer] PACS Anatomical Region Laterality Modality Other 11/15/2024 1:08 PM CDT Red Gordon MD [facility] ORDERABLES Edited Result - Final from Last 3 [place] [id number]
--- OUTSIDE RECORDS SUMMARY | 2024-12-30 05:30 | XMS_ITS | Clinical Summary ---
Author Organization [facility] [place] [place] [address] [facility] [address] Address [address] [place] [address] Care Team Providers Care Mercerizing Range Feeder Name Role Phone Carissa Lancaster Primary Care Pr ovider Allergies Active Allergy Reactions Criticality Noted Date Comments Tree Nuts Unknown 07/18/2023 Walnuts and [place] Nuts. Medications FeroSuL 325 mg (65 mg [...] - Td or Tdap) 06/16/2027, 02/18/2012 Insurance [facility] H[facility]/PPO Address: [facility] [address] [place] [address] [place] [address] [facility] [employer] [facility] H[facility]/PPO Address: [place] [address] Care Teams Mercerizing Range Feeder Relationship Specialty Start Date End Date Carissa Lancaster PA PCP - General Physician Plant Security Guard 03/03/21
[2024-12-30] MEDS: LACTATED RINGERS 1,000 ML 125 ML IV CONT ×4 (05:53→08:54)
[2024-12-30] MEDS: ACETAMINOPHEN 500 MG TABLET 1000 MG PO ×3 (05:55→19:07)
--- NOTE | 2024-12-30 06:14 | LDADM ---
This patient, Prabhakar Vázquez, was admitted to Labor/Delivery/Recovery 120 on 12/30/24 at 05:24. Plans for labor, pain management and were discussed with patient. Patient/family oriented to hospital policies and general routines including ID bracelet, bed and alarms, visiting hours, pain management, procedures, bathroom and other care routines, personal items, smoking policy, room service/diet and guest tray routines, security routines, and visiting hours. Patient/Family are encouraged to report perceived risks to care and to ask questions if they do not understand what they are told or what they should do. See OBIX for further documentation.
[2024-12-30] MEDS: ONDANSETRON INJ 4 MG/2 ML VIAL IV PUSH (07:02)
[2024-12-30] MEDS: FAMOTIDINE 20 MG/2 ML VIAL IV PUSH (07:02)
--- NOTE | 2024-12-30 07:12 | WPDANESEPPF ---
Anes - Initial Pre Proc Eval Procedure: Operation Date: 12/30/24 07:30 Proposed Procedures p Repeat Section - Red Gordon MD Date/Time: 12/30/24 07:12 Surgeon: Red Gordon MD Pre Op Diagnosis: repeat Patient Data Age: 39 Gender: F Height: 1.65 m Weight: 103 kg Last Vital Signs Temp 36.2 C L 12/30/24 05:38 Pulse 72 12/30/24 07:01 Resp 16 12/30/24 05:38 BP 120/67 12/30/24 07:01 Pulse Ox 100 12/30/24 07:08 O2 Del Method Room Air 12/30/24 06:14 Allergies Allergy/AdvReac Type Severity Reaction Status Date / Time [place] nut Allergy Anaphylaxis Verified 12/30/24 06:39 walnut Allergy Anaphylaxis Verified 12/30/24 06:39 Home Medications ?Medication ?Instructions ?Recorded ?Confirmed ?Type albuterol sulfate 90 mcg/actuation 1 puff inhalation DAILY PRN asthma 11/06/23 12/22/24 History aerosol inhaler prenat.vits,celi,[id number] 1 tablet PO DAILY 11/06/23 12/30/24 History Patient hx anesthesia problems: none Family hx anesthesia problems: none Results Review: All pre-operative results and documents have been reviewed as part of the pre-operative evaluation. [facility] Past Medical History Medical History (Updated 12/30/24 @ 07:12 by Boyd Garcia DO) Asthma delivery delivered Surgical History Surgical History Hx of section History of hysteroscopy Family History Family History Grandparent Breast cancer Grandparent Lung cancer Social History Social History Smoking status: Light tobacco smoker Tobacco type: cigarettes Second hand tobacco smoke exposure: No Substance use: never Do You Feel Safe in your Home?: Yes Lack of Transportation: No Lack of Food: Never True Current Housing: I Have Housing Concerned About Future Housing: No Difficulty Paying Gas/Electric Bills: No Difficulty Paying for Meds: No Currently Unemployed: No Education: Master's Degree or Higher Difficulty w/ Childcare or Family Care: No Spiritual care concerns: No Anes - Eval Final PreProcedure Day of Procedure 12/30/24 07:12 Patient weight: obese Heart: regular rate and rhythm Lungs: clear to auscultation and normal air movement Airway: Mallampati scale class II Neurological: alert and oriented Last oral intake: >/= 8 hours ASA classification: II Emergent: no Anesthetic plan: proceed Anesthesia type and monitoring: regional spinal and standard monitoring Results Review: All pre-operative results and documents have been reviewed as part of the pre-operative evaluation. Informed Consent: The patient's anesthetic plan and its attendant risks and benefits were discussed with the patient/family/POA. Questions were solicited and answers provided to the satisfaction of the patient/family/POA.
[2024-12-30] MEDS: ceFAZolin 2 GM in SODIUM CHLORIDE 0.9% IV 50 ML 100 ML IVPB (07:32)
--- NOTE | 2024-12-30 07:32 | PM.IMHP ---
H&P: HPI History of Present Illness Date/Time: 12/30/24 07:32 Chief Complaint: Here for c section Narrative: 39 y/o at 39 weeks here for a repeat . First c section was for breech, with a known Muellerian anomaly. She has no contractions, no leakage, good movement. GBS neg. Review of Systems Review of Systems: All systems reviewed & are unremarkable except as noted in HPI and below PMFSH Past Medical History Medical History Asthma delivery delivered Surgical History Surgical History (Updated 12/30/24 @ 07:35 by Red Gordon MD) Hx of section History of hysteroscopy Family History Family History Grandparent Breast cancer Grandparent Lung cancer Social History Social History Smoking status: Light tobacco smoker Tobacco type: cigarettes Second hand tobacco smoke exposure: No Substance use: never Do You Feel Safe in your Home?: Yes Lack of Transportation: No Lack of Food: Never True Current Housing: I Have Housing Concerned About Future Housing: No Difficulty Paying Gas/Electric Bills: No Difficulty Paying for Meds: No Currently Unemployed: No Education: Master's Degree or Higher Difficulty w/ Childcare or Family Care: No Spiritual care concerns: No Meds Home Medications and Allergies Home Medications ?Medication ?Instructions ?Recorded ?Confirmed ?Type albuterol sulfate 90 mcg/actuation 1 puff inhalation DAILY PRN asthma 11/06/23 12/22/24 History aerosol inhaler prenat.vits,celi,qrt-rler-nllfn 1 tablet PO DAILY 11/06/23 12/30/24 History Allergies Allergy/AdvReac Type Severity Reaction Status Date / Time [place] nut Allergy Anaphylaxis Verified 12/30/24 06:39 walnut Allergy Anaphylaxis Verified 12/30/24 06:39 Vital Signs Vital Signs - 24 hr 12/30/24 05:38 12/30/24 05:43 12/30/24 05:48 Temperature 97.1 F L Pulse Rate 86 Respiratory Rate 16 Blood Pressure 113/74 Pulse Oximetry 99 98 98 Oxygen Delivery 12/30/24 05:53 12/30/24 05:56 12/30/24 06:01 Temperature Pulse Rate 69 Respiratory Rate Blood Pressure 110/58 L Pulse Oximetry 98 99 99 Oxygen Delivery 12/30/24 06:06 12/30/24 06:11 12/30/24 06:14 Temperature Pulse Rate Respiratory Rate Blood Pressure Pulse Oximetry 98 99 Oxygen Delivery Room Air 12/30/24 06:16 12/30/24 06:21 12/30/24 06:26 Temperature Pulse Rate 68 Respiratory Rate Blood Pressure 126/79 Pulse Oximetry 99 99 99 Oxygen Delivery 12/30/24 06:31 12/30/24 06:36 12/30/24 06:43 Temperature Pulse Rate Respiratory Rate Blood Pressure Pulse Oximetry 99 99 100 Oxygen Delivery 12/30/24 06:44 12/30/24 06:46 12/30/24 06:47 Temperature Pulse Rate 144 H 68 74 Respiratory Rate Blood Pressure 112/63 112/64 Pulse Oximetry Oxygen Delivery 12/30/24 06:48 12/30/24 06:53 12/30/24 06:58 Temperature Pulse Rate Respiratory Rate Blood Pressure Pulse Oximetry 100 100 100 Oxygen Delivery 12/30/24 07:01 12/30/24 07:03 12/30/24 07:08 Temperature 97.2 F L Pulse Rate 72 Respiratory Rate Blood Pressure 120/67 Pulse Oximetry 100 100 Oxygen Delivery 12/30/24 07:13 12/30/24 07:16 12/30/24 07:18 Temperature Pulse Rate 67 Respiratory Rate Blood Pressure 106/60 Pulse Oximetry 100 100 Oxygen Delivery 12/30/24 07:23 12/30/24 07:28 Temperature Pulse Rate Respiratory Rate Blood Pressure Pulse Oximetry 100 100 Oxygen Delivery Exam Const: Other: Well-developed, well-nourished female in no acute distress. Neck: Other: Neck: Trachea midline, no thyromegaly or masses. Resp: Other: Lungs: Normal respiratory effort. Clear to auscultation bilaterally. Cardio: Other: Heart: Regular rate and rhythm with normal S1-S2. GI: Other: ABD: Soft, nontender, nondistended, gravid. No guarding or rebound tenderness. No hepatosplenomegaly. NST reactive. TOCO: no contractions. : Other: Deferred. Back/Spine/Pelvis: Other: Back: No CVA tenderness. Skin: Other: Skin: No lesions, rashes or ulcers noted. Extrem: Other: Extremities: nontender with no edema Psych: Other: Mental status grossly normal, with normal mood and affect. Assessment and Plan Assessment and plan (1) Hx of section: Code(s): Z98.891 - History of uterine scar from previous surgery Status: Acute Assessment and Plan: A: IUP at 39 weeks with prior , desiring repeat. P: Offered repeat delivery. She understands risks of surgery to include risks of anesthesia, risks of pain, infection, bleeding, blood products, thromboembolic phenomena and damage to adjacent structures such as bowel, bladder, ureters, blood vessels and nerves. She understands all these risks and elects to proceed with surgery. (2) Term : Code(s): Z34.90 - Encounter for supervision of normal , unspecified, unspecified trimester Status: Acute
--- NOTE | 2024-12-30 07:35 | WPDHPUPDATE1 ---
History and Physical Update Update Date/Time: 12/30/24 07:35 History and Physical has been reviewed, including an updated exam of the patient. There are NO changes in the patient's condition. Risks, benefits, and alternatives have been discussed and questions answered. Patient agrees to proceed with procedure.
--- NOTE | 2024-12-30 08:36 | P.PCNOB_ITS ---
OB - Delivery Note Procedure Delivery date: 12/30/24 Pre-op diagnosis: Previous Delivery Post-op Diagnosis: Same Delivery monitor: External FHT and External Uterine Procedure Performed: Repeat Surgeon: Red Gordon MD Anesthesia type: Spinal Description of Procedure/Findings: Findings: Uterus enlarged and heart-shaped, but was too large to exteriorize, so was not fully visualized. Ovaries/tubes not visualized either. Techniques: The patient was taken to the operating room where she was prepared and draped in the usual sterile fashion in dorsal supine position with a leftward tilt. She received cefazolin preoperatively. Spinal anesthesia was found to be adequate. A Pfannenstiel skin incision was made along the previous scar line and was carried through to the underlying layer of the fascia. The fascia was incised in the midline and the incision was extended laterally. The fascia was dissected free of the underlying rectus muscles. The rectus muscles were in the midline. The peritoneum was identified, tented up and entered sharply. The peritoneal incision was extended superiorly and inferiorly with good visualization of the bladder. The bladder blade was placed. The vesicouterine peritoneum was identified, tented up and entered sharply. The in cision was extended laterally and the bladder flap was developed. The bladder blade was replaced. The uterus was then incised sharply in a transverse fashion along the lower uterine segment. The incision was extended laterally. The infant's head was delivered atraumatically to the sterile field, followed by the body. The nose and mouth were bulb suctioned. After a delay, the cord was clamped and cut. The was handed off the field. Cord blood was collected. The placenta was removed manually and was passed off the field. The uterus was too large to be exteriorized. The endometrial cavity was cleared of all clots and debris. The uterine incision was reapproximated using 0 Monocryl in a running, locked fashion. A second, imbricating layer of the same suture was run. Excellent hemostasis resulted as did excellent reapproximation of the normal anatomy. The pelvis was irrigated copiously with warmed normal saline. The bladder flap was treated with Surgicel powder. Rigorous hemostasis was assured. The fascial layer was reapproximated using 0 Vicryl in a running fashion. The skin was closed with a running, subcuticular stitch of 4 0 Vicryl. Dermaflex was applied externally. Sponge, lap, needle and instrument counts were correct. The patient was taken to the recovery room in stable condition. The infant went to the nursery in stable condition. I was present and scrubbed the entire procedure. Specimen: Yes (Cord blood) Estimated Blood Loss: 1,790 Drains: Yes (Lamar) Packing: No Pathology: Yes (Cord blood) Complications: None Condition: Stable Disposition: PACU [place] Baby Date of : 12/30/24 Time of : 08:01 Gestational Age by Date: 39 gender: Male Weight (pounds): 8 Weight (ounces): 9 presentation: vertex Placenta delivery description: Manual Removal and Normal Configuration Cord Vessel Description: 3 Vessels and Delayed Cord Clamping score one minute: 9 score five minutes: 9
--- NOTE | 2024-12-30 08:40 | PM.OBDSVD ---
DS: Admitting Diagnosis Discharge Date 01/01/25 Admitting Diagnosis IUP at 39 weeks Prior , desires repeat DS: Discharge Diagnosis Discharge Diagnosis (1) delivery delivered: Code(s): O82 - Encounter for delivery without indication Status: Acute OB - DS: Summary OB Procedures : NST OB Procedures Intrapartum: OB Procedures: : None Peripartum Data Procedures: Procedures Operation Date: 12/30/24 07:30 <No data on this case meets the specified criteria> Time Spent with Patient Time attestation: Total time spent providing and/or coordinating discharge services: Discharge Plan Discharge Attending physician on discharge: Red Gordon Discharging Clinician: Red Gordon Patient Disposition: Home Activity: may shower, may drive after 2 weeks and pelvic rest Diet: regular Wound Care Instructions: incision open to air Discharge Instructions: Call or return if temperature above 100.4? F, increased abdominal pain, increased vaginal bleeding or any new problems. Education: Mom and Baby Guide Given to: Mother Follow-Up: Call your delivering provider's office for an appointment to be seen in: 4 Weeks Mom and baby should come to the [facility] for the follow-up appointment. Appointment Date/Time: January 04, 2025 at 11:00 am What to expect at your follow-up visit: Physical Assessment Call [phone] if you are unable to keep your appointment time. BREAST CARE: * Wear a snug supportive bra. * For engorgement discomfort: Bottle Feeding: * May apply ice packs ABDOMINAL INCISION: (if applicable) * Allow incision to air dry * Do NOT use lotions for powders on your incision * When showering, allow soap and water to run over the incision, but do not wash incision EPISIOTOMY/PERINEAL CARE: * Until bleeding stops, use your zaria bottle after urinating * Change your pad frequently throughout the day * No tub baths until seen by your physician - You may shower ACTIVITY: * Rest as much as possible. * Do not exercise or lift anything heavier than your baby (such as laundry or other children.) * Avoid stairs or driving as much as possible. * Do not put anything into the vagina. No douching, tampons, or sexual activity until seen by physician. NOTIFY PHYSICIAN IF YOU HAVE ANY QUESTIONS OR IF ANY OF THE FOLLOWING SYMPTOMS OCCUR: * If your incision becomes red, swollen, or more painful than what you have experienced in the hospital. * If your vaginal bleeding becomes foul smelling. * If your vaginal bleeding becomes more heavy than a period or if your bleeding changes from pink to bright red. However, you may pass an occasional walnut-sized clot once or twice for the first week . * If you experience a sharp, shooting pain in you calves. * If you discover a hard, reddened area on your breast or if you experience flu-like symptoms. DIET: * Eat regular, well-balanced meals. * Drink plenty of fluids daily. If , drink to thirst. Patient Language: Kittitian Stand Alone Forms: General Discharge Information Follow-up/Referrals: Red Gordon MD [Physician, CREDIT ANALYSIS MANAGER] - 4 Weeks Discharge Medications: New ibuprofen 600 mg tablet 600 mg PO Q6H PRN (Reason: cramps) Qty: 30 0RF oxycodone-acetaminophen [Percocet] 5-325 mg tablet 1 - 2 tablet PO Q6H PRN (Reason: pain) Qty: 30 0RF Continued albuterol sulfate 90 mcg/actuation HFA aerosol inhaler 1 puff INHALATION DAILY PRN (Reason: asthma) prenat.vits,celi,mdn-cjpv-[id number] Tablet 1 tablet PO DAILY Date of admission: 12/30/24 05:24 Primary Care Provider: TonnyCairssa Admitting Provider: Red Gordon Attending physician on admission: Red Gordon Condition: Stable
[2024-12-30] MEDS: OXYTOCIN 30 UNITS/NS 500 ML 30 UNITS/500 ML BAG 125 UNITS IV CONT (08:52)
[2024-12-30] MEDS: KETOROLAC 15 MG/ML VIAL (*BKC) IV PUSH ×2 (13:13→19:08)
[2024-12-30] MEDS: DOCUSATE SODIUM 100 MG CAPSULE PO ×2 (13:14→19:30)
[2024-12-30] MEDS: LIDOCAINE 5% PATCH 1 PATCH TRANSDERM ×2 (13:14→13:17)
[2024-12-30] MEDS: DEXTROSE 5%/0.45% SOD CHL 1,000 ML 125 ML IV CONT ×2 (13:17→21:43)
[2024-12-30] MEDS: SIMETHICONE 80 MG TAB.CHEW PO ×2 (13:20→19:08)
[2024-12-31] MEDS: KETOROLAC 15 MG/ML VIAL (*BKC) IV PUSH (01:08)
[2024-12-31] MEDS: ACETAMINOPHEN 500 MG TABLET 1000 MG PO ×4 (01:09→22:10)
[2024-12-31 05:36] LABS: Hematocrit 28.2 % (37.0-47.0); Hemoglobin 8.9 g/dL (12.0-15.0); Immature Granulocyte Percent A 0.5 % (0-0.5); Lymphocytes Absolute Auto 1.65 K/mm3 (0.9-3.2); Mean Corpuscular HGB Conc 31.6 g/dl (32-36); Mean Corpuscular Hemoglobin 28.3 pg (26-34); Mean Corpuscular Volume 89.5 fl (80-100); Nucleated Red Blood Cells Absolute Auto 0.000 K/mm3 (0.0-0.012); Nucleated Red Blood Cells Perc 0.0 % (0.0-0.2); Platelet Count Result 200 k/mm3 (150-375); Red Blood Count 3.15 M/mm3 (4.2-5.4); White Blood Count 9.4 K/mm3 (4.5-10.0)
[2024-12-31 07:35] VITALS: BP 101/57; PULSE 72; RESP 16; TEMP 36.5; O2SAT 98
[2024-12-31] MEDS: SIMETHICONE 80 MG TAB.CHEW PO ×3 (07:49→16:05)
[2024-12-31] MEDS: IBUPROFEN 600 MG TABLET PO ×3 (07:49→22:10)
[2024-12-31] MEDS: DOCUSATE SODIUM 100 MG CAPSULE PO ×2 (07:49→16:06)
--- NOTE | 2024-12-31 09:03 | P.PNOB_ITS ---
OB - PN: Subj Subjective Date/time seen: 12/31/24 09:03 Interval history: She denies lightheadedness or dizziness, lochia minimal, she has ambulated tor restroom without problems. Patient comments: no complaints, pain well controlled and tolerating diet baby status: nursing well OB - PN: Obj Data Labs 12/31/24 04:28 Labs: Laboratory Results - last 24 hr 12/31/24 04:28 WBC 9.4 RBC 3.15 L Hgb 8.9 L Hct 28.2 L MCV 89.5 MCH 28.3 MCHC 31.6 L RDW 15.1 H Plt Count 200 MPV 9.9 Immature Gran % (Auto) 0.5 Neut % (Auto) 75.3 H Lymph % (Auto) 17.6 L Jackson % (Auto) 5.7 Eos % (Auto) 0.6 Baso % (Auto) 0.3 Lymph # (Auto) 1.65 Jackson # (Auto) 0.5 Eos # (Auto) 0.1 Baso # (Auto) 0.0 Abs Immat Gran (auto) 0.05 H Absolute Neuts (auto) 7.1 H Absolute Nucleated RBC 0.000 Nucleated RBC % 0.0 OB - PN A/P Assessment and Plan (1) Delivery by section: Status: Acute Assessment and Plan: POD1. Doing well. Asymptomatic anemia. Oral iron therapy, Routine post op care. Time Spent With Patient Time: Total time spent is greater than 50% in coordination of care (as documented) at patient's floor/unit and/or counseling patient: Review of Systems 2 Review of Systems: All systems reviewed & are unremarkable except as noted in HPI and below Exam 2 Const: General: comfortable and no acute distress Resp: Effort & Inspection: normal respiratory effort GI: Other: nondistended, fundus firm below umbilicus, incision intact, no drainage or erythema Extrem: General: normal to inspection and no calf tenderness Psych: Mental Status: mental status grossly normal Affect: normal affect
[2024-12-31] MEDS: MULTIVIT/MIN/PREN/FOL AC/IRON TABLET 1 TAB PO (12:40)
[2024-12-31] MEDS: oxyCODONE HCL (*CRX) 5 MG TAB IR PO (12:40)
--- NOTE | 2024-12-31 13:15 | WPDANLDPN2 ---
Anes-Prog Note L&D Date/Time: 12/31/24 13:15 Comfortable throughout: section Neuraxial method: spinal Epidural/Spinal procedure site: clean & non-tender Neuro status: Neuro function grossly intact. Cardiovascular status: normal Respiratory status: normal Airway patency: baseline Mental status: baseline Post-Op hydration status: normal Vital Signs: Last Vital Signs Temp 97.7 F 12/31/24 07:35 Pulse 72 12/31/24 07:35 Resp 16 12/31/24 07:35 BP 101/57 L 12/31/24 07:35 Pulse Ox 98 12/31/24 07:35 O2 Del Method Room Air 12/30/24 19:20 Pain score (VAS): 0/10 I/O: Intake & Output 12/30/24 12/31/24 12/31/24 23:59 07:59 15:59 Intake Total 1000 1391.7 240 Output Total 1600 2450 750 Balance -600 -1058.3 -510 Post-procedural complaints: none Patient feedback: Patient satisfied with anesthetic care.
--- NOTE | 2024-12-31 13:15 | WPDANLDNPN2 ---
Anes-Prog Note L&D-Neuraxial Date/Time: 12/31/24 13:15 Neuraxial medications: intrathecal PF morphine Opiod-related complaints: none Patient feedback: Patient satisfied with post-operative pain management.
[2024-12-31] MEDS: LIDOCAINE 5% PATCH 1 PATCH TRANSDERM (16:05)
[2024-12-31 20:04] VITALS: BP 116/61; PULSE 82; RESP 19; TEMP 36.8; O2SAT 97
[2025-01-01] MEDS: ACETAMINOPHEN 500 MG TABLET 1000 MG PO ×2 (04:25→11:47)
[2025-01-01] MEDS: IBUPROFEN 600 MG TABLET PO ×2 (04:25→11:48)
[2025-01-01 08:15] VITALS: BP 102/64; PULSE 76; RESP 18; TEMP 37.2; O2SAT 98
[2025-01-01] MEDS: MULTIVIT/MIN/PREN/FOL AC/IRON TABLET 1 TAB PO (08:34)
[2025-01-01] MEDS: SIMETHICONE 80 MG TAB.CHEW PO ×2 (08:34→11:48)
[2025-01-01] MEDS: DOCUSATE SODIUM 100 MG CAPSULE PO (08:34)
[2025-01-01] MEDS: oxyCODONE HCL (*CRX) 5 MG TAB IR PO (08:42)
--- NOTE | 2025-01-01 09:39 | P.PNOB_ITS ---
OB - PN: Subj Subjective Date/time seen: 01/01/25 09:39 Interval history: She states she feels good, requests discharge, adequate pain control, positive flatus. Patient comments: tolerating diet OB - PN: Obj Data Labs 12/31/24 04:28 OB - PN A/P Assessment and Plan (1) delivery delivered: Code(s): O82 - Encounter for delivery without indication Status: Acute Assessment and Plan: Doing well. Asymptomatic anemia. Requests discharge. Discharge home today. Time Spent With Patient Time: Total time spent is greater than 50% in coordination of care (as documented) at patient's floor/unit and/or counseling patient: Exam 2 Const: General: comfortable and no acute distress Resp: Effort & Inspection: normal respiratory effort Psych: Mental Status: mental status grossly normal Affect: normal affect
--- NOTE | 2025-01-01 10:43 | PC.NURSE ---
Patient instructed on viewing the discharge video Mother & Baby Care, The First Two Weeks. Patient was given the opportunity and encouraged to ask questions. Patient verbalized understanding of information shared and has been given the mother/baby guide for home reference.
[2025-01-04 11:42] VITALS: BP 116/71; PULSE 66; RESP 18; TEMP 36.8; O2SAT 100
== END 2025-01-01 13:00 | disposition home or self-care (01) | DRG 788 ==
LOC: ANHLDR 01-04 07:56 → ANHOB2 01-04 07:56
PROVIDERS: Admitting Provider Obstetrics & Gynecology; PCP Physician Assistant; Visit Provider Obstetrics & Gynecology
PROC: 10D00Z1 Extraction of Products of Conception, Low, Open Approach (ICD-10-PCS; CPT 59514; principal; 2024-12-30 07:30)
DX: O99.334 Smoking (tobacco) complicating childbirth (principal); F17.210 Nicotine dependence, cigarettes, uncomplicated; Z3A.39 39 weeks gestation of pregnancy; Z37.0 Single live birth
CPT/HCPCS: 36415; 85025; 85027; 86593; 86850; 86900; 86901; J0690; A9270; J1885; J2274; J2405; J2590; J7120